=== PATIENT | male | born 1955 | race Two or more races ===

== ENCOUNTER 2018-02-14 06:48 | Day surgery (SDC) | payer BC ==
[2018-02-14] VITALS (8 sets, daily range): BP systolic 109–145; BP diastolic 71–88
[~2018-02-14] VITALS: Ht 170.2 cm; Wt 74.8 kg
[~2018-02-14 06:48] MED LIST: BIOTIN10 MG PO; LR 1000ml 1,000 ML IVLG SCH; NKM; PRESERVISION A1 EACH PO
[2018-02-14] MEDS ORDERED: LR 1000ml 1,000 ML IVLG SCH (07:29)
[2018-02-14] MEDS ORDERED: Atropine Inj 1mg/10ml Syr IV PRN (07:30)
[2018-02-14] MEDS ORDERED: fentaNYL 100 mcg/2 mL IV PRN (07:30)
[2018-02-14] MEDS ORDERED: Midazolam 2mg/2ml Inj IVP PRN (07:30)
[2018-02-14] MEDS ORDERED: DiphenhydrAMINE 50mg/ml Inj IVP PRN (07:30)
--- NOTE | 2018-02-14 07:34 | Anethesia Preoperative Eval ---
Anesthesia Pre-op PMH/ROS General Date of Evaluation: Feb 14, 2018 Time of Evaluation: 07:32 Anesthesiologist: oscar ASA Score: ASA 2 Mallampati Score Class I : Soft palate, uvula, fauces, pillars visible Class II: Soft palate, uvula, fauces visible Class III: Soft palate, base of uvula visible Class IV: Only hard plate visible Mallampati Classification: Class II Surgeon: breann Diagnosis: blood in stool Surgical Procedure: egd/colonoscopy Anesthesia History: none Social History: smoking - nonsmoker Family History: no anesthesia problems Allergies: Coded Allergies: No Known Allergies (Unverified , 02/13/18) Medications: see eMAR Patient NPO?: Yes Past Medical History Gastrointestinal/Genitourinary: Reports: other - blood in stool, hx/o colon polyps PSxH Narrative: nasal sx, fistula repair Anesthesia Pre-op Phys. Exam Physician Exam Last Vital Signs Date Time Temp Pulse Resp B/P (MAP) Pulse Ox O2 Delivery O2 Flow Rate FiO2 02/14/18 07:14 98.2 77 20 145/88 99 Room Air Constitutional: NAD Neurologic: CN 2-12 intact Cardiovascular: RRR Respiratory: CTA Gastrointestinal: S/NT/ND Airway Exam Mallampati Score: Class II MO: limited Neck: decreased rom to lateral rotation TMD: 2fb ROM: limited Anesthesia Pre-op A/P Risk Assessment & Plan Assessment: asa2 Plan: mac Status Change Before Surgery: No Pre-Antibiotics Drug: Sammi Hernandez MD Feb 14, 2018 07:34
--- NOTE | 2018-02-14 08:15 | Pre-Procedure Note/Attestation ---
Pre-Procedure Note/Attestation Complete Prior to Procedure Planned Procedure: not applicable Procedure Narrative: esophagogastroduodenoscopycolon Indications for Procedure Pre-Operative Diagnosis: heme (+) Attestation I attest that I discussed the nature of the procedure; its benefits; risks and complications; and alternatives (and the risks and benefits of such alternatives ), prior to the procedure, with the patient (or the patient's legal account maintenance representative). I attest that, if there was a reasonable possibility of needing a blood transfusion, the patient (or the patient's legal account maintenance representative) was given the [facility] standardized written summary, pursuant to the [place] Ronald Blood Safety Act ([place] Health and Safety Code # 1645, as amended). I attest that I re-evaluated the patient just prior to the surgery and that there has been no change in the patient's H&P, except as documented below: Yvonne Lerner MD Feb 14, 2018 08:15
--- NOTE | 2018-02-14 08:16 | Short Stay Surgery H&P ---
History of Present Illness History of Present Illness Chief Complaint Heme (+) See typed H&P for details HPI Gaurav Berger is a 62 year old male who was admitted on for Blood In Stool Patient History Allergies: Coded Allergies: No Known Allergies (Unverified , 02/13/18) Medication History Scheduled Biotin (Biotin), 500 MG PO DAILY, (Reported) Vit A/Vit C/Vit E/Zinc/Copper (Preservision Areds Softgel), 1 EACH PO DAILY, ( Reported) Physical Exam Vital Signs Last Vital Signs Date Time Temp Pulse Resp B/P (MAP) Pulse Ox O2 Delivery O2 Flow Rate FiO2 02/14/18 07:14 98.2 77 20 145/88 99 Room Air Plan Attestation Are the patient's medical conditions optimized for surgery? Yvonne Lerner MD Feb 14, 2018 08:16
--- NOTE | 2018-02-14 09:37 | Immediate Post-Op Evaluation ---
Immediate Post-Op Evalulation Immediate Post-Op Evalulation Procedure: egd/colonoscopy/bx Date of Evaluation: Feb 14, 2018 Time of Evaluation: 09:34 IV Fluids: 525ml lr Blood Products: none Estimated Blood Loss: negligible Blood Pressure Systolic: 116 Blood Pressure Diastolic: 71 Pulse Rate: 68 Respiratory Rate: 18 O2 Sat by Pulse Oximetry: 99 Temperature (Fahrenheit): 97.6 Pain Score (1-10): 0 Nausea: No Vomiting: No Complications none Patient Status: awake, reacts, patent Hydration Status: adequate Drug: Sammi Hernandez MD Feb 14, 2018 09:37
--- NOTE | 2018-02-14 09:38 | 48 Hour Post Anesthesia Eval ---
Post Anesthesia Evaluation Procedure: egd/colonoscopy/bx Date of Evaluation: Feb 14, 2018 Time of Evaluation: 09:37 Blood Pressure Systolic: 106 0: 72 Pulse Rate: 66 Respiratory Rate: 18 Temperature (Fahrenheit): 97.6 O2 Sat by Pulse Oximetry: 100 Airway: patent Nausea: No Vomiting: No Hydration Status: adequate Cardiopulmonary Status: stable Mental Status/LOC: patient returned to baseline Post-Anesthesia Complications: none Follow-up care needed: N/A Sammi Isidro MD Feb 14, 2018 09:38
--- NOTE | 2018-02-14 09:42 | Endoscopy Procedure Note ---
Endoscopy Procedure Note General Indication for Procedure: Heme (+) Procedures Performed: EGD, colonoscopy Operative Findings/Diagnosis: HUAN, distal TV polyp, anal scar Specimen: yes Pt Tolerated Procedure Well: Yes Estimated Blood Loss: none Anesthesia Anesthesiologist: Nico Robert Anesthesia: MAC Medications Medication Given: see anesthesia record Inserted Devices Implant(s) used?: No GI Core Measures 50 yrs or older w/o bx or poly: Not Applicable 10yrs. F/U not recommended: Not Applicable If not recommended, why?: Yvonne Lerner MD Feb 14, 2018 09:42
--- NOTE | 2018-02-14 09:44 | Brief Operative Note ---
Immediate Post Operative Note Operative Note Chief Complaint: urgency, OB (+) Pre-op Diagnosis: heme (+) Procedure: Egd/bx, colom/bx/inj/polypect Post-op Diagnosis: HUAN, Polyp, anal scar Surgeon: breann Anesthesiologist: earl nguyen Anesthesia: MAC Specimen: yes Complications: none Condition: stable Fluids: recorded Estimated Blood Loss: minimal Drains: none Implant(s) used?: No Yvonne Lerner MD Feb 14, 2018 09:44
--- NOTE | 2018-02-14 19:30 | Procedure Note ---
DATE OF PROCEDURE: 02/14/2018 PROCEDURE: Upper gastrointestinal endoscopy with biopsy as well as colonoscopy with submucosal injection as well as snare polypectomy with biopsy. SURGEON: Yvonne Lerner M.D. ANESTHESIA: Please see the separate anesthesiologist notes for details. PRE-ENDOSCOPIC DIAGNOSIS: Heme-positive stools and frequent bowel movements. POST-ENDOSCOPIC DIAGNOSES: 1. Linear erosion of the lower esophagus suggestive of gastroesophageal reflux. 2. Status post random biopsies of the normal duodenum. 3. Normal upper endoscopy otherwise. 4. Normal terminal ileum for about 15 cm status post biopsy. 5. Status post random biopsies of the right colon and the left colon mucosa. 6. An 8 mm flat colon polyp seen in the distal transverse colon, which was raised with saline in 4 quadrants and then removed with a snare polypectomy without complications. 7. Status post Vianey ink tattooing in 2 locations next to the polypectomy site. 8. Triangular posterior scar in the anus consistent with the patient's previous anal surgery. DESCRIPTION OF PROCEDURE: The procedure, its risks, indications, alternatives, and possible complications including, but not limited to bleeding, infection, perforation, , and anesthesia complications were explained to the patient and informed consent was obtained. The patient was then sedated in the left lateral decubitus position. A diagnostic upper endoscope was introduced through the oropharynx and advanced to the duodenum. The endoscope was then gradually withdrawn and the mucosa was examined carefully. The rectal exam was then done and the colonoscope was introduced into the rectum and advanced to 15 cm into the terminal ileum. The colonoscope was then gradually withdrawn and the mucosa examined carefully. Examination of the upper and the lower gastrointestinal mucosa revealed findings as described above. The. No complications were observed from this procedure and the patient was sent to recovery and subsequently revaluated in recovery in good condition. COMPLICATIONS: None. ASSESSMENT: This patient's examination was notable for some mild gastroesophageal reflux, which can be treated with Zantac 300 mg nightly. The biopsies will be evaluated to rule out evidence of microscopic colitis or inflammatory bowel disease. Given the heme-positive stools noted, the patient should undergo the capsule endoscopy examination, which can be arranged at the followup visit. RECOMMENDATIONS: 1. Resume oral diet. 2. Zantac 300 mg p.o. at bedtime. 3. Follow up biopsy results. 4. Outpatient followup. 5. Capsule endoscopy. Thank you for asking me to participate in the care of this patient. Yvonne Lerner M.D. DR: CASS JOB#: [id number] CC: Ga Mills M.D.
--- NOTE | 2018-02-15 03:00 | Procedure Note ---
DATE OF PROCEDURE: 02/14/2018 INCOMPLETE DICTATION Yvonne Lerner M.D. DR: Nazia JOB#: [id number] CC: KARLA
== END 2018-02-14 14:45 | disposition home or self-care (01) ==
LOC: GAS 06:48
DX: K92.1 Melena (principal); D12.3 Benign neoplasm of transverse colon; K22.10 Ulcer of esophagus without bleeding; K21.0 Gastro-esophageal reflux disease with esophagitis; Z86.010 Personal history of colon polyps
CPT/HCPCS: 45381; 94003; 94150